=== PATIENT | female | born 1980 | race Caucasian/White ===

== ENCOUNTER 2024-08-27 21:31 | Emergency (ER) | payer BC, SELFPAY ==
[2024-08-27 21:33] VITALS: BP 114/79; PULSE 110; RESP 14; TEMP 36.8; O2SAT 97
--- NOTE | 2024-08-27 21:40 | ED.GENADULT ---
HPI - General Adult General Chief complaint: Seizure Stated complaint: Seizure Time Seen by Provider: 08/27/24 21:38 History of Present Illness HPI narrative: Patient is a 44-year-old female who presents to the emergency department this evening status post a breakthrough seizure. Patient does have a known history of seizure disorder and is on Lamictal which she takes as prescribed twice daily. Patient last saw her neurologist approximately 1 month ago and everything was normal. Patient states that she was showering when she had the seizure. was present at bedside states that he walked into the bathroom and found the patient sitting on the toilet with her legs inside the shower. Patient states that when she woke up she found herself in the ambulance. EMS report states that upon arrival patient was postictal but did and did up waking up in the ambulance and is currently alert and oriented to person, place, time and situation. Patient complains of lower extremity cramping but other than that denies any headaches, dizziness, focal weakness, numbness and tingling. Patient also denies any chest pain, shortness of breath, any fevers or chills at home, any urinary symptoms including dysuria hematuria, any nausea vomiting or abdominal pain. No additional symptoms or concerns at this time. Related Data Allergies Allergy/AdvReac Type Severity Reaction Status Date / Time No Known Allergies Allergy Verified 08/27/24 21:40 Review of Systems Review of Systems: All systems are reviewed and are negative unless stated otherwise in the HPI. Exam Narrative: General: Alert, awake, afebrile, in no acute distress. HEENT: PERRL, no rhinorrhea, no post nasal drip, oropharynx clear. Cardiovascular: Regular rate and rhythm, no murmurs, rubs or gallops, no peripheral edema. Respiratory: Clear to auscultation bilaterally, no tachypnea, no wheezing, no rhonchi, no rubs, no respiratory distress. Abdomen: Soft, nontender, nondistended, no rebound, no guarding, no peritoneal signs. Musculoskeletal: No joint swelling or deformity, normal muscle tone. Back: No midline tenderness to palpation over the cervical, thoracic or lumbar spine. Skin: No rashes or petechia, no signs of infection. Neurological: Alert and oriented to person, place, and time. Follows all commands. No focal deficits, speech is clear and fluent. Course Vital Signs Vital signs: Vital Signs Temperature 98.2 F 08/27/24 21:33 Pulse Rate 110 H 08/27/24 21:33 Respiratory Rate 14 08/27/24 21:33 Blood Pressure 114/79 08/27/24 21:33 Pulse Oximetry 97 08/27/24 21:33 Oxygen Delivery Room Air 08/27/24 21:33 Temperature 98.2 F 08/27/24 21:33 Pulse Rate 90 08/27/24 22:55 Respiratory Rate 15 08/27/24 22:55 Blood Pressure 114/80 08/27/24 22:55 Pulse Oximetry 100 08/27/24 22:55 Oxygen Delivery Room Air 08/27/24 21:33 Medical Decision Making MDM Narrative Medical decision making narrative: The patient was evaluated by myself in the emergency department. History is obtained from patient who is an independent historian and physical exam was performed. External medical records were reviewed at this time. IV was established and pertinent tests were ordered. Patient was administered 1 L IV fluid bolus with normal saline. EKG was obtained which revealed sinus rhythm rate of 99 beats per minute with a right bundle branch block, no evidence of acute ischemia. EKG was independently interpreted by me and is currently pending official cardiology read. No previous EKG available for comparison. Laboratory results obtained revealing no acute process. Differential diagnosis considerations include breakthrough seizure, dehydration, electrolyte derangements. Comorbidities impacting this visit include history of epilepsy. I have evaluated and discussed social determinants of health with the patient that could potentially impact subsequent diagno
--- NOTE | 2024-08-27 21:42 | ECG_ITS ---
Test Date: 2024-08-27 22:01:16 Measurements Intervals [place] Rate: 99 P: 23 HI: 138 QRS: -17 QRSD: 101 T: 38 QT: 336 QTc: 432 Interpretive Statements SINUS RHYTHM LOW QRS VOLTAGE IN PRECORDIAL LEADS [QRS DEFLECTION < 1.0 mV IN CHEST LEADS] INCOMPLETE RIGHT BUNDLE BRANCH BLOCK [90+ ms QRS DURATION, TERMINAL R IN V1/V2, 40+ ms S IN I/aVL/V4/V5/V6] ABNORMAL ECG No previous ECG available for comparison Electronically Signed On 08-28-2024 09:05:22 CDT by Erick Lorenzo M.D.
[2024-08-27] MEDS: SODIUM CHLORIDE 0.9% IV 1,000 ML 999 ML IV CONT (21:56)
[2024-08-27 22:07] LABS: Basophils Absolute Auto 0.1 K/mm3 (0.0-0.1); Basophils Percent Auto 0.6 % (0.2-1.2); Eosinophils Absolute Auto 0.2 K/mm3 (0-0.3); Eosinophils Percent Auto 1.9 % (0-4.4); Hematocrit 38.2 % (37.0-47.0); Hemoglobin 13.4 g/dL (12.0-15.0); Immature Granulocyte Absolute 0.04 K/mm3 (0.00-0.031); Immature Granulocyte Percent A 0.4 % (0-0.5); Lymphocytes Absolute Auto 3.76 K/mm3 (0.9-3.2); Lymphocytes Percent Auto 34.8 % (18.3-44.2); Mean Corpuscular HGB Conc 35.1 g/dl (32-36); Mean Corpuscular Hemoglobin 29.4 pg (26-34); Mean Corpuscular Volume 83.8 fl (80-100); Mean Platelet Volume 11.2 fl (7.4-10.4); Monocytes Absolute Auto 0.8 K/mm3 (0.1-0.6); Monocytes Percent Auto 7.1 % (2.6-8.5); Neutrophils Percent Auto 55.2 % (45.5-73.1); Platelet Count Result 355 k/mm3 (150-375); Red Blood Count 4.56 M/mm3 (4.2-5.4); Red Cell Distribution Width 13.3 % (11.5-14.5); White Blood Count 10.8 K/mm3 (4.5-10.0)
[2024-08-27 22:19] LABS: Alanine Aminotransferase 17 U/L (6-35); Albumin Level 4.4 g/dL (3.5-5.1); Alkaline Phosphatase 76 U/L (38-126); Anion Gap 14 mmol/L (4-12); Aspartate Amino Transferase 23 U/L (14-36); Bilirubin,Total 0.4 mg/dL (0.2-1.3); Blood Urea Nitrogen 7 mg/dL (7-17); Calcium 9.3 mg/dL (8.4-10.2); Carbon Dioxide 21 mmol/L (22-30); Chloride 102 mmol/L (98-107); Estimated CRCL calculation 63 ml/min; Estimated Glomerular Filt Rate 49; Glucose 110 mg/dL (65-110); Magnesium 2.2 mg/dL (1.6-2.3); Potassium 3.9 mmol/L (3.4-5.0); Sodium 137 mmol/L (137-145)
[2024-08-27 22:21] LABS: SPREG INTERNAL CONTROL Positive; Serum Qual hCG Negative
[2024-08-27 22:55] VITALS: BP 114/80; PULSE 90; RESP 15; O2SAT 100
--- NOTE | 2024-08-27 23:07 | PC.NURSE ---
Report received from DEONTE Emerson. Assumed care of patient at this time.
[2024-08-27] MEDS: KETOROLAC 15 MG/ML VIAL (*BKC) IV PUSH (23:11)
[2024-08-27 23:31] VITALS: BP 111/70; PULSE 89; RESP 20; O2SAT 99
== END 2024-08-27 23:39 | disposition home or self-care (01) ==
PROVIDERS: Emergency Provider Emergency Medicine
DX: G40.909 Epilepsy, unspecified, not intractable, without status epilepticus (principal)
CPT/HCPCS: 36415; 80053; 83735; 84703; 85025; 93005; 96361; 96374; 99284; J1885; J7030